=== PATIENT | male | born 1990 | race Two or more races ===

== ENCOUNTER 2020-03-06 20:08 | Emergency (ER) | payer MEDICAID, OTHER ==
[~2020-03-06] VITALS: Ht 185.4 cm; Wt 111.1 kg
[2020-03-06 21:03] LABS: *BILIRUBIN,URIN NEGATIVE (NEGATIVE); *BLOOD, URINE NEGATIVE (NEGATIVE); *CLARITY,URINE CLEAR (CLEAR); *COLOR,URINE YELLOW (YELLOW); *KETONES,URINE NEGATIVE (NEGATIVE); *UROBILINOGEN,URINE 0.2 E.U./dl (NORMAL); LEUKOCYTE ESTERASE ,URINE NEGATIVE (NEGATIVE); NITRITE, URINE NEGATIVE (NEGATIVE); PH,URINE 5.5 (5.0-8.0); UGLUCOSE NEGATIVE (NEGATIVE)
[2020-03-06 21:10] LABS: *AMPHETAMINE, URINE POSITIVE (NEGATIVE); *CANNABINOID, URINE POSITIVE (NEGATIVE); *COCCAINE, URINE NEGATIVE (NEGATIVE); *OPIATE, URINE NEGATIVE (NEGATIVE); *PHENCYCLIDINE SCREEN,URINE NEGATIVE (NEGATIVE)
[2020-03-06 21:21] LABS: CARBON DIOXIDE 27 mmol/L (21-32); CHLORIDE 107 mmol/L (98-107); CREATININE 1.1 mg/dL (0.6-1.3); GLUCOSE 117 mg/dL (74-106); POTASSIUM 3.3 mmol/L (3.5-5.1); UREA NITROGEN, BLOOD 13 mg/dL (7-18)
[2020-03-06 21:24] LABS: BASOPHILS # (AUTO) 0.4 K/uL (0.0-8.0); BASOPHILS % (AUTO) 2.9 % (0.0-2.0); EOSINOPHILS # (AUTO) 0.2 K/uL (0.0-0.7); EOSINOPHILS % (AUTO) 1.9 % (0.0-7.0); HEMATOCRIT 43.4 % (36.7-47.1); HEMOGLOBIN 14.7 g/dL (12.5-16.3); LYMPHOCYTES # (AUTO) 1.8 K/uL (20.0-40.0); MEAN CORPUSCULAR HEMOGLOBIN 32.2 uug (23.8-33.4); MEAN CORPUSCULAR HGB CONC 34 g/dL (32.5-36.3); MONOCYTES # (AUTO) 0.8 K/uL (2.0-10.0); MONOCYTES % (AUTO) 6.4 % (0.0-11.0); NEUTROPHILS # (AUTO) 8.9 K/uL (1.8-8.9); NEUTROPHILS % (AUTO) 73.8 % (38.5-71.5); PLATELET COUNT (AUTO) 218 K/uL (152-348); RED BLOOD CELL COUNT(AUTO) 4.57 MIL/uL (4.06-5.63); WHITE BLOOD COUNT (AUTO) 12.1 K/uL (3.6-10.2)
[2020-03-06 21:27] LABS: ALANINE AMINOTRANSFERASE 21 U/L (16-63); ALKALINE PHOSPHATASE 123 U/L (50-136); ASPARTATE AMINOTRANSFERASE 15 U/L (15-37); BILIRUBIN,DIRECT 0.2 mg/dL (0.0-0.2); BILIRUBIN,TOTAL 0.3 mg/dL (0.2-1.0); TOTAL PROTEIN, SERUM 6.8 g/dL (6.4-8.2)
[2020-03-06 21:28] LABS: ACETAMINOPHEN < 2.0 ug/mL (10-30)
[2020-03-06 21:29] LABS: ETHANOL < 3 MG/DL (0-0)
[2020-03-06] MEDS ORDERED: POTASSIUM CHLORIDE 20 MEQ TAB.PRT.SR PO ONE (21:45)
[2020-03-06] MEDS ORDERED: POTASSIUM CHLORIDE 20 MEQ TAB.PRT.SR ONE (21:47)
--- NOTE | 2020-03-06 21:48 | NUR ---
Medically cleared by DR Pacheco.
--- NOTE | 2020-03-06 21:55 | NUR ---
Called intake from [facility] spoke to ART requesating to fax facesheet, and clinicals to .
--- NOTE | 2020-03-07 00:04 | NUR ---
Called Candice from [facility] intake. Gave transfer info. Patient will be going to [facility], accepting MD is Dr Blas. Call for report is .
--- NOTE | 2020-03-07 00:26 | NUR ---
Called [facility], spoke to a representavie who is states unable to transport patient due to being volunary status. Gave Logistic # .
--- NOTE | 2020-03-07 00:32 | NUR ---
Called [facility] ambulance ETA is 15mins
--- NOTE | 2020-03-07 00:46 | NUR ---
Xiomara JORDAN report to Nayan. Addendum: 03/07/20 at 0055 by [id number] Nayan townsend from [facility] Ishaan Cristina.
--- NOTE | 2020-03-07 00:56 | NUR ---
Gave SBAR report to [facility] ambulance unit [id number].
== END 2020-03-07 00:58 ==
LOC: ER 20:14
DX: Z02.2 Encounter for examination for admission to residential institution (principal); Z20.822 Contact with and (suspected) exposure to COVID-19; J98.11 Atelectasis; Z86.19 Personal history of other infectious and parasitic diseases; R78.4 Finding of other drugs of addictive potential in blood
CPT/HCPCS: 36415; 71045; 80048; 80076; 80299; 80307; 80320; 81003; 85025; 87426; 93005; 99285; U0003; A4663; G0480